=== PATIENT | female | born 1990 | race Two or more races ===

== ENCOUNTER 2020-11-27 19:47 | Emergency (ER) | payer OTHER ==
[~2020-11-27] VITALS: Ht 162.6 cm; Wt 77.1 kg
== END 2020-11-27 23:58 | disposition home or self-care (01) ==
LOC: ER 19:47
DX: S01.82XA Laceration with foreign body of other part of head, initial encounter (principal); S60.042A Contusion of left ring finger without damage to nail, initial encounter; X99.8XXA Assault by other sharp object, initial encounter; Y93.89 Activity, other specified; Y92.89 Other specified places as the place of occurrence of the external cause; Y99.8 Other external cause status